=== PATIENT | female | born 1990 | race Caucasian/White ===

== ENCOUNTER 2017-11-20 07:42 | Observation (INO) | payer MEDICAID ==
[2017-11-20] VITALS (15 sets, daily range): BP systolic 89–107; BP diastolic 49–62
[~2017-11-20 07:42] MED LIST: ACE3 PO; ALBU8.5H IH; AMOX-362 PO; AMOX500T10 PO; AMOX875T60 PO; ARIP5TAB28 PO; BENZ57AE; CEPH500C24 PO; CIPR-344 PO; DOXY-179 PO; FLUO-202 PO; HYDR-4309 PO; IBU800 PO; IBUP800T37 PO; KET10 PO; LANO56CR3 TP; LEVO-85 PO; LOR5 PO; LOR5/325 PO; METR-1 PO; METR-160 PO; MULT-892 PO; NORG1TAB2 PO; ONDA4TAB PO; OXYC-865 PO; PENI-24 PO; PER PO; PNV1TABL PO; PREN-67 PO; PROM-110 PO; TRAM-627 PO
--- NOTE | 2017-11-20 07:48 | ER Report ---
History and Physical Time Seen By MD: 07:48 HPI/ROS Chief Complaint: Diffuse abdominal pain, left back/flank pain HPI: Patient is a 27 yo F here with complaints of left back/flank pain since Thursday which is now spread into the abdomen which is now diffusely tender since last night. Patient reports subjective fevers, chills, SOB secondary to abdominal pain, nausea without emesis. She is passing bowel movements and urine without blood. She has had a tubal with a prior but denies other abdominal surgeries. Allergies: Coded Allergies: peanut (Verified Allergy, Unknown, 11/20/17) Uncoded Allergies: ARTIFICIALCHEERIES (Allergy, Mild, HIVES, 09/20/15) coconut (Allergy, Unknown, 03/09/13) Home Meds Reported Medications Bupropion Hcl (WELLBUTRIN SR) 150 Mg Tablet.er, 150 MG PO QDAY, TAB 11/20/17 Fluoxetine Hcl (PROZAC) 40 Mg Capsule, 40 MG PO QDAY, CAPSULE 11/20/17 Discontinued Scripts Oxycodone Hcl/Acetaminophen (PERCOCET 5-325 MG TABLET) 1 Each Tablet, 1-2 EACH PO Q4H Y for PAIN, #12 TAB Prov:BIBCORTEZ DO 02/06/16 Amoxicillin (AMOXICILLIN) 500 Mg Capsule, 1 CAP PO TID for infection, #30 CAPSULE Prov:BIBCORTEZ DO 02/06/16 Hx Smoking: Yes Smoking Status: Former Smoker Exposure to Second Hand Smoke?: Yes Hx Substance Use Disorder: No Hx Alcohol Use: No Constitutional Vital Sign - Last 24 Hours 11/20/17 11/20/17 11/20/17 11/20/17 07:51 08:00 08:30 08:41 Temp 98.8 Pulse 92 85 83 Resp 18 B/P (MAP) 116/76 108/70 (83) 111/72 (85) Pulse Ox 96 94 88 O2 Delivery Room Air O2 Flow Rate 2.0 11/20/17 11/20/17 11/20/17 11/20/17 09:19 09:30 10:00 10:30 Pulse 72 67 B/P (MAP) 104/64 (77) 115/55 (75) 106/56 (73) 99/50 (66) Pulse Ox 97 98 11/20/17 11:00 Pulse 68 B/P (MAP) 97/59 (72) Pulse Ox 98 Physical Exam General Appearance: The patient is alert, has no immediate need for airway protection and no signs of toxicity. Moderate distress secondary to pain Eyes: Pupils equal and round no pallor or injection. ENT, Mouth: Mucous membranes are moist. Respiratory: There are no retractions, lungs are clear to auscultation. Cardiovascular: Regular rate and rhythm. Gastrointestinal: Abdomen is soft and + diffusely tender , no masses, bowel sounds normal. Neurological: No focal deficits Skin: Warm and dry, no rashes. Musculoskeletal: Neck is supple non tender. Extremities are nontender, nonswollen and have full range of motion. DIFFERENTIAL DIAGNOSIS: After history and physical exam differential diagnosis was considered for abdominal pain including but not limited to appendicitis, cholecystitis, gastritis and urinary tract infection, pyelonephritis, nephrolithiasis, ureterolithiasis Medical Decision Making Data Points Result Diagram: 11/20/17 0815 11/20/17 0815 Laboratory Hematology Test 11/20/17 08:08 11/20/17 08:15 Urine Color Yellow Urine Clarity Slightly-cloudy Urine pH 7.0 pH (4.8-9.5) Urine Specific Beatty 1.017 Urine Protein 30 mg/dL (NEGATIVE) Urine Glucose (UA) Negative mg/dL (NEGATIVE) Urine Ketones Negative mg/dL (NEGATIVE) Urine Blood Negative (NEGATIVE) Urine Nitrite Positive (NEGATIVE) Urine Bilirubin Negative (NEGATIVE) Urine Urobilinogen 4.0 mg/dL (0.2-1.9) Urine Leukocyte Esterase Small (NEGATIVE) Urine RBC 6 /HPF (0-2/HPF) Urine WBC 68 /HPF (0-5/HPF) Urine Squamous Epithelial Cells None /LPF (</=FEW) Urine Transitional Epithelial Cells Few /LPF (NONE-FEW) Urine Bacteria Moderate /HPF (NONE-FEW) Urine Mucus Few /HPF (NONE-FEW) Red Blood Count 4.52 M/uL (4.17-5.56) Mean Corpuscular Volume 85.3 fL (80.0-96.0) Mean Corpuscular Hemoglobin 29.7 pg (26.0-33.0) Mean Corpuscular Hemoglobin Concent 34.8 g/dL (32.0-36.0) Red Cell Distribution Width 13.0 % (11.5-14.5) Mean Platelet Volume 8.3 fL (7.2-11.1) Neutrophils (%) (Auto) 88.1 % (39.4-72.5) Lymphocytes (%) (Auto) 5.0 % (17.6-49.6) Monocytes (%) (Auto) 6.5 % (4.1-12.4) Eosinophils (%) (Auto) 0.1 % (0.4-6.7) Basophils (%) (Auto) 0.3 % (0.3-1.4) Nucleated RBC Relative Count (auto) 0.0 /100WBC Neutrophils # (Auto) 9.7 K/uL (2.0-7.4) Lymphocytes # (Auto) 0.5 K/uL (1.3-3.6) Monocytes # (Auto) 0.7 K/uL (0.3-1.0) Eosinophils # (Auto) 0.0 K/uL (0.0-0.5) Basophils # (Auto) 0.0 K/uL (0.0-0.1) Nucleated RBC Absolute Count (auto) 0.00 K/uL Peripheral Blood Smear No Y/N Sodium Level 139 mmol/L (137-145) Potassium Level 3.7 mmol/L (3.5-5.0) Chloride Level 100 mmol/L (98-107) Carbon Dioxide Level 24 mmol/L (22-31) Blood Urea Nitrogen 9 mg/dl (7-18) Creatinine 0.70 mg/dl (0.52-1.04) Glomerular Filtration Rate Calc > 60.0 Random Glucose 96 mg/dl (75-110) Lactate 1.3 mmol/L (0.7-2.1) Calcium Level 9.0 mg/dl (8.4-10.2) Total Bilirubin 0.7 mg/dl (0.2-1.3) Aspartate Amino Transf (AST/SGOT) 20 U/L (0-35) Alanine Aminotransferase (ALT/SGPT) 27 U/L (0-56) Alkaline Phosphatase 57 U/L (0-126) Total Protein 6.9 g/dl (6.3-8.2) Albumin 4.0 g/dl (3.5-5.0) Lipase 98 U/L (23-300) Human Chorionic Gonadotropin, Qual Negative (NEGATIVE) Chemistry Test 11/20/17 08:08 11/20/17 08:15 Urine Color Yellow Urine Clarity Slightly-cloudy Urine pH 7.0 pH (4.8-9.5) Urine Specific Beatty 1.017 Urine Protein 30 mg/dL (NEGATIVE) Urine Glucose (UA) Negative mg/dL (NEGATIVE) Urine Ketones Negative mg/dL (NEGATIVE) Urine Blood Negative (NEGATIVE) Urine Nitrite Positive (NEGATIVE) Urine Bilirubin Negative (NEGATIVE) Urine Urobilinogen 4.0 mg/dL (0.2-1.9) Urine Leukocyte Esterase Small (NEGATIVE) Urine RBC 6 /HPF (0-2/HPF) Urine WBC 68 /HPF (0-5/HPF) Urine Squamous Epithelial Cells None /LPF (</=FEW) Urine Transitional Epithelial Cells Few /LPF (NONE-FEW) Urine Bacteria Moderate /HPF (NONE-FEW) Urine Mucus Few /HPF (NONE-FEW) White Blood Count 11.0 k/uL (4.5-11.0) Red Blood Count 4.52 M/uL (4.17-5.56) Hemoglobin 13.4 g/dL (12.0-16.0) Hematocrit 38.6 % (34.0-47.0) Mean Corpuscular Volume 85.3 fL (80.0-96.0) Mean Corpuscular Hemoglobin 29.7 pg (26.0-33.0) Mean Corpuscular Hemoglobin Concent 34.8 g/dL (32.0-36.0) Red Cell Distribution Width 13.0 % (11.5-14.5) Platelet Count 191 K/uL (150-450) Mean Platelet Volume 8.3 fL (7.2-11.1) Neutrophils (%) (Auto) 88.1 % (39.4-72.5) Lymphocytes (%) (Auto) 5.0 % (17.6-49.6) Monocytes (%) (Auto) 6.5 % (4.1-12.4) Eosinophils (%) (Auto) 0.1 % (0.4-6.7) Basophils (%) (Auto) 0.3 % (0.3-1.4) Nucleated RBC Relative Count (auto) 0.0 /100WBC Neutrophils # (Auto) 9.7 K/uL (2.0-7.4) Lymphocytes # (Auto) 0.5 K/uL (1.3-3.6) Monocytes # (Auto) 0.7 K/uL (0.3-1.0) Eosinophils # (Auto) 0.0 K/uL (0.0-0.5) Basophils # (Auto) 0.0 K/uL (0.0-0.1) Nucleated RBC Absolute Count (auto) 0.00 K/uL Peripheral Blood Smear No Y/N Glomerular Filtration Rate Calc > 60.0 Lactate 1.3 mmol/L (0.7-2.1) Calcium Level 9.0 mg/dl (8.4-10.2) Total Bilirubin 0.7 mg/dl (0.2-1.3) Aspartate Amino Transf (AST/SGOT) 20 U/L (0-35) Alanine Aminotransferase (ALT/SGPT) 27 U/L (0-56) Alkaline Phosphatase 57 U/L (0-126) Total Protein 6.9 g/dl (6.3-8.2) Albumin 4.0 g/dl (3.5-5.0) Lipase 98 U/L (23-300) Human Chorionic Gonadotropin, Qual Negative (NEGATIVE) Urinalysis Test 11/20/17 08:08 Urine Color Yellow Urine Clarity Slightly-cloudy Urine pH 7.0 pH (4.8-9.5) Urine Specific Beatty 1.017 Urine Protein 30 mg/dL (NEGATIVE) Urine Glucose (UA) Negative mg/dL (NEGATIVE) Urine Ketones Negative mg/dL (NEGATIVE) Urine Blood Negative (NEGATIVE) Urine Nitrite Positive (NEGATIVE) Urine Bilirubin Negative (NEGATIVE) Urine Urobilinogen 4.0 mg/dL (0.2-1.9) Urine Leukocyte Esterase Small (NEGATIVE) Urine RBC 6 /HPF (0-2/HPF) Urine WBC 68 /HPF (0-5/HPF) Urine Squamous Epithelial Cells None /LPF (</=FEW) Urine Transitional Epithelial Cells Few /LPF (NONE-FEW) Urine Bacteria Moderate /HPF (NONE-FEW) Urine Mucus Few /HPF (NONE-FEW) EKG/Imaging Imaging ABDOMEN/PELVIS WITH CONTRAST HISTORY: diffuse abd pain, left flank pain TECHNIQUE: Following administration of IV contrast contiguous axial images acquired through the abdomen/pelvis. Coronal and sagittal reformatting also performed. Dose Lowering Technique One of the following dose optimization techniques was utilized in the performance of this exam: Automated exposure control; adjustment of the mA and/ or kV according to the patient's size; or use of an iterative reconstruction technique. Specific details can be referenced in the facility's radiology CT exam operational policy. CONTRAST: 75 mL Isovue-370 COMPARISON: October 22, 2015 FINDINGS: Visualized lung bases: Minimal dependent changes in the lower lung gramajo Hepatobiliary: Negative. Spleen: Negative. Adrenals: Negative. Pancreas: Negative. Kidneys ureters or bladder: There is a 1 cm round indeterminate hypodensity in the mid right kidney. There is moderate left hydronephrosis and left hydroureter secondary to a 7 x 4 mm calculus in the mid left ureter Genitalia: Tubal ligation clips are noted GI: Negative. Vessels/spaces/nodes: There is a trace amount of free pelvic fluid Bones/soft tissues: There is a disc excavatum deformity the anterior chest wall. Small umbilical hernia containing fat Additional findings: None pertinent. IMPRESSION: Moderate left hydronephrosis and left hydroureter secondary to a 7 x 4 mm calculus in the mid left ureter 1 cm round indeterminate hypodensity in the mid right kidney CHEST PA AND LAT INDICATION: SOB COMPARISON: None available FINDINGS: Heart size within normal limits. There is no focal infiltrate or lobar consolidation. There is no pneumothorax or pleural effusion. IMPRESSION: 1. No acute cardiopulmonary process. ED Course/Re-evaluation ED Course Patient is a 27-year-old female here with complaints of left flank pain, diffuse abdominal pain as well as subjective fevers at home. In this clinical setting, patient presentation is concerning for pyelonephritis versus cystitis. CT imaging showed a 7 mm midureteral stone on the left with moderate hydronephrosis. Patient also complained of SOB so a CXR was completed and was unremarkable. Urinalysis was positive for urinary tract infection, culture was ordered and pending. She was given Dilaudid, Zofran, fluids for symptomatic relief as well as a dose of ceftriaxone for antimicrobial coverage. I discussed the patient with Urology manager professional development Dr. Lozoya who accepted the patient. Patient remained stable throughout ED course. Re-evaluation 11/20/2017 11:46:47 am I reevaluated the patient and she follows that her pain was returning so subsequent dose of Dilaudid was ordered. Decision to Disposition Date: Nov 20, 2017 Decision to Disposition Time: 11:40 Depart Departure Latest Vital Signs Vital Signs Date Time Temp Pulse Resp B/P (MAP) Pulse Ox O2 Delivery O2 Flow Rate FiO2 11/20/17 11:00 68 97/59 (72) 98 11/20/17 08:41 2.0 11/20/17 07:51 98.8 18 Room Air Impression: Primary Impression: Urinary tract infection Additional Impressions: Abdominal pain Nausea Hydronephrosis concurrent with and due to calculi of kidney and ureter Condition: Improved Disposition: ADMIT FROM ER TO OR Referrals: LEONARDO PEÑA MD (PCP) Problem Qualifiers NILA PENA DO Nov 20, 2017 07:48
[2017-11-20] MEDS ORDERED: NS(*) 0.9% 1000 ML BAG 1,000 ML IV ONE (07:53)
[2017-11-20] MEDS ORDERED: BUPR-126 PO (07:55)
[2017-11-20] MEDS ORDERED: HYDROmorphone* 1 MG/ML 1 MG/ML ML IVP ONE ×2 (07:55→11:35)
[2017-11-20] MEDS ORDERED: FLUO40CA76 PO (07:55)
[2017-11-20] MEDS ORDERED: ONDANSETRON 4 MG/2 ML VIAL IVP ONE (07:55)
[2017-11-20 08:29] LABS: PLATELET COUNT, AUTOMATED 191 K/uL (150-450)
[2017-11-20] MEDS ORDERED: IOPAMIDOL 76% 75 ML INFUS BTL 75 ML ONE (08:45)
[2017-11-20] MEDS ORDERED: cefTRIAXone 1 GM VIAL IVP ONE (09:00)
--- NOTE | 2017-11-20 09:24 | RADIOLOGY IMAGING REPORT ---
FACILITY: [facility] PATIENT NAME: Kaye Harry : 1990 MR: [id number] V: [id number] EXAM DATE: ORDERING PHYSICIAN: NILA PENA TECHNOLOGIST: Location: [facility] Patient: Kaye Harry : 1990 Visit/Account:[id number] Date of Sevice: 11/20/2017 CHEST PA AND LAT INDICATION: SOB COMPARISON: None available FINDINGS: Heart size within normal limits. There is no focal infiltrate or lobar consolidation. There is no pneumothorax or pleural effusion. IMPRESSION: 1. No acute cardiopulmonary process. Report Dictated By: Vish Brewer at 11/20/2017 9:20 AM Report E-Signed By: Vish Brewer at 11/20/2017 9:20 AM WSN:[email or web address]
--- NOTE | 2017-11-20 09:35 | RADIOLOGY IMAGING REPORT ---
FACILITY: [facility] - [place] PATIENT NAME: Kaye Harry : 1990 MR: [id number] V: [id number] EXAM DATE: ORDERING PHYSICIAN: NILA PENA TECHNOLOGIST: Location: [facility] [place] Patient: Kyae Harry : 1990 Visit/Account:[id number] Date of Sevice: 11/20/2017 ABDOMEN/PELVIS WITH CONTRAST HISTORY: diffuse abd pain, left flank pain TECHNIQUE: Following administration of IV contrast contiguous axial images acquired through the abdom en/pelvis. Coronal and sagittal reformatting also performed. Dose Lowering Technique One of the following dose optimization techniques was utilized in the performance of this exam: Autom ated exposure control; adjustment of the mA and/or kV according to the patient's size; or use of an i terative reconstruction technique. Specific details can be referenced in the facility's radiology C T exam operational policy. CONTRAST: 75 mL Isovue-370 COMPARISON: October 22, 2015 FINDINGS: Visualized lung bases: Minimal dependent changes in the lower lung gramajo Hepatobiliary: Negative. Spleen: Negative. Adrenals: Negative. Pancreas: Negative. Kidneys ureters or bladder: There is a 1 cm round indeterminate hypodensity in the mid right kidney. There is moderate left hydronephrosis and left hydroureter secondary to a 7 x 4 mm calculus in the mi d left ureter Genitalia: Tubal ligation clips are noted GI: Negative. Vessels/spaces/nodes: There is a trace amount of free pelvic fluid Bones/soft tissues: There is a disc excavatum deformity the anterior chest wall. Small umbilical he rnia containing fat Additional findings: None pertinent. IMPRESSION: Moderate left hydronephrosis and left hydroureter secondary to a 7 x 4 mm calculus in the mid left ur eter 1 cm round indeterminate hypodensity in the mid right kidney Report Dictated By: Purvi Knutson MD at 11/20/2017 9:22 AM Report E-Signed By: Purvi Knutson MD at 11/20/2017 9:31 AM WSN:[email or web address]
[2017-11-20] MEDS ORDERED: FAMOTIDINE 20 MG/50 ML PREMIX IVPB ONE (12:00)
[2017-11-20] MEDS ORDERED: MIDAZOLAM 2 MG/2 ML VIAL IVP PRN (12:00)
[2017-11-20] MEDS ORDERED: NORMOSOL R SOLN(*) 1000 ML BAG 1,000 ML IV PRN (12:00)
[2017-11-20] MEDS ORDERED: PROPOFOL EMUL(*) 10MG/ML 20 ML 20 ML ONE (12:05)
[2017-11-20] MEDS ORDERED: LIDOCAINE MPF 1% 5 ML VIAL ONE (12:05)
[2017-11-20] MEDS ORDERED: fentaNYL CITR 100 MCG/2 ML AMP ONE (12:05)
[2017-11-20] MEDS ORDERED: ONDANSETRON 4 MG/2 ML VIAL ONE (12:05)
[2017-11-20] MEDS ORDERED: DEXAMETHASONE SOD 4 MG/ML VIAL ONE (12:06)
[2017-11-20] MEDS ORDERED: LIDOCAINE 2% JELLY 5 ML TUBE ONE (12:07)
[2017-11-20] MEDS ORDERED: HALOPERIDOL LACT 5 MG/ML VIAL IM ONE (12:15)
[2017-11-20] MEDS ORDERED: GENTAMICIN(*) 80 MG/2 ML VIAL 160 MG in NS(*) 0.9% 100 ML BAG 100 ML IVPB ONE (12:25)
[2017-11-20] MEDS ORDERED: fentaNYL CITR 100 MCG/2 ML AMP IVP PRN (12:55)
[2017-11-20] MEDS ORDERED: LIDOCAINE 2% JELLY 30 ML TUBE ONE (13:40)
[2017-11-20] MEDS ORDERED: KETOROLAC 30 MG/ML VIAL ONE (14:26)
[2017-11-20] MEDS ORDERED: FLUSH 10 ML SYR IVP PRN (14:40)
[2017-11-20] MEDS ORDERED: NALOXONE HCL 0.4 MG/ML VIAL IVP PRN (14:40)
[2017-11-20] MEDS ORDERED: HYDROmorphone PCA 6 MG/30 ML IV PRN (14:40)
[2017-11-20] MEDS ORDERED: ZOLPIDEM TARTRATE 5 MG TAB PO PRN (14:40)
[2017-11-20] MEDS ORDERED: ONDANSETRON 4 MG/2 ML VIAL IVP PRN (14:40)
[2017-11-20] MEDS: LR(*) 1000 ML BAG 1,000 ML IV PRN ×2 (15:50→23:50)
--- NOTE | 2017-11-20 16:01 | RADIOLOGY IMAGING REPORT ---
FACILITY: [facility] PATIENT NAME: Kaye Harry : 1990 MR: [id number] V: [id number] EXAM DATE: ORDERING PHYSICIAN: BERNARD MCCLELLAN TECHNOLOGIST: Location: [facility] - [place] Patient: Kaye Harry : 1990 Visit/Account:[id number] Date of Sevice: 11/20/2017 Exam type: RETROGRADE PYELOGRAM History: Image. Comparison: CT abdomen pelvis performed today. Findings: Three intraoperative CR spot views the abdomen pelvis were submitted. The total prostate be time was 0.1 minute. The fluoroscopy dose was 0.76 mGray . On image one contrast distends the urinary bladder. There Is a small amount contrast identified i n the renal collecting systems bilaterally. Images two and three demonstrate placement of a left ure teral stent IMPRESSION: 1. As above Report Dictated By: Purvi Knutson MD at 11/20/2017 3:55 PM Report E-Signed By: Purvi Knutson MD at 11/20/2017 3:57 PM WSN:[email or web address]
--- NOTE | 2017-11-20 16:05 | OPERATIVE REPORT 1 ---
EVENT DATE: November 20, 2017 SURGEON: Reggie Lozoya MD ANESTHESIOLOGIST: Devonte Barrera MD ANESTHESIA: General anesthetic. PREOPERATIVE DIAGNOSES 1. Left ureterolithiasis with associated colic, nausea, and vomiting. 2. Chills and fever, etiology ?, probable urinary tract infection and/or pyelonephritis, urosepsis. POSTOPERATIVE DIAGNOSES 1. Left ureterolithiasis with associated colic, nausea, and vomiting. 2. Chills and fever, etiology ?, probable urinary tract infection and/or pyelonephritis urosepsis. PROCEDURES PERFORMED 1. Cystourethroscopy. 2. Left ureteral stent placement. 3. Collection of urine from the bladder for urinalysis, culture and sensitivity. 4. Collection of urine from the left kidney for urinalysis, culture and sensitivity. DESCRIPTION OF PROCEDURE Under general anesthetic, the patient was prepped and draped in the extended lithotomy position. The 21 panendoscope admitted through the urethra to the bladder. The urine was cloudy and took several irrigations to clear. At conclusion of the irrigation, there was noted to be evidence of acute cystitis with inflammatory lesion and some early ulcerations on a few lesions. No other demonstrable lesions. Trigone and ureteral orifices were otherwise normal. The access catheter was passed up the left collecting system into the kidney without any difficulty. The stone was probably manipulated into the left renal pelvis. Urine was collected for urinalysis, culture, and sensitivity from the left kidney. The urine from the left kidney was cloudy as well. The 6-Yakut x 28 cm PercuFlex passed up the right collecting system into the right kidney. X-ray confirmed a full curl in the kidney as well as the bladder. The bladder was drained. The patient tolerated the procedure satisfactorily and returned to the recovery room in satisfactory condition. This is a 27-year-old white female complaining of acute left ureterorenal colic , nausea, and vomiting this past Thursday. CT IVP with contrast showed a stone in the upper ureter. Patient was discharged home, to be followed up. Patient has had interval chills and fever. Patient has had more pain today, and thus came to the emergency room for further evaluation and therapy. I was contacted and have seen the patient. She is agreeable to further evaluation and treatment. White cell count 11,000 range. Urinalysis showed pyuria, nitrite positive. Bladder as previously alluded to above showed evidence of acute cystitis. CT IVP with contrast was reviewed, and there appears to be a stone in the left mid ureter. She was agreeable to further evaluation and therapy. That has been accomplished. See operative note for details. She has had no antecedent history of ureterolithiasis. Patient was informed of need for admission to observe for possible septic shock , chills, fever, need for blood cultures, etc. Patient was agreeable to admission and followup. Patient may need IV antibiotics for several days if she has left pyelonephritis versus acute cystitis. The patient will be discharged home on appropriate antibiotic therapy. Force fluids, 12 glasses of water per day. Activities are as tolerated. She is to strain all her urine. She will be sent home with strainers. She will plan followup as indicated depending on infection issues and considerations. LOUISE
[2017-11-20] MEDS: DOCUSATE SODIUM 100 MG CAP PO SCH (21:16)
[2017-11-20] MEDS: FAMOTIDINE 20 MG TAB PO SCH (21:16)
[2017-11-20] MEDS: GENTAMICIN/NS 80 MG/100 ML PB 100 ML IVPB SCH (21:17)
[2017-11-20] MEDS: ACETAMIN/CODEINE #3 300-30 MG PO PRN (21:22)
[2017-11-21 02:10] VITALS: BP 107/58
[2017-11-21] MEDS: ACETAMIN/CODEINE #3 300-30 MG PO PRN ×2 (05:00→09:01)
[2017-11-21] MEDS: GENTAMICIN/NS 80 MG/100 ML PB 100 ML IVPB SCH (05:37)
[2017-11-21 08:14] VITALS: BP 103/65
[2017-11-21] MEDS: DOCUSATE SODIUM 100 MG CAP PO SCH (08:15)
[2017-11-21] MEDS: FAMOTIDINE 20 MG TAB PO SCH (08:15)
[2017-11-21] MEDS ORDERED: NS 0.9% 500 ML BAG IV PRN (08:20)
[2017-11-21] MEDS ORDERED: cefTRIAXone(*) 1 GM VIAL 1 GM in NS(*) 0.9% 100 ML ADDVANT BAG 100 ML IVPB SCH (09:00)
[2017-11-21] MEDS ORDERED: CIPR-214 PO (11:47)
[2017-11-21] MEDS ORDERED: FAMO20TA28 PO (11:48)
[2017-11-21] MEDS ORDERED: IBUP600T22 PO (11:49)
[2017-11-21] MEDS ORDERED: PHEN200T32 PO (11:50)
[2017-11-21] MEDS ORDERED: HYDR-389 PO (11:52)
== END 2017-11-21 11:41 | disposition home or self-care (01) ==
LOC: ER 07:43 → OR 11:16 → MED 15:40
DX: N30.00 Acute cystitis without hematuria (principal); N20.2 Calculus of kidney with calculus of ureter; N13.30 Unspecified hydronephrosis
CPT/HCPCS: 36415; 52332; 71046; 74177; 74420; 81001; 83605; 83690; 84703; 85025; 86850; 86900; 86901; 87040; 87077; 87088; 87186; 96361; 96374; 96375; 99284; C1769; C1894; G0378; J0696; J1100; J1170; J1580; J1630; J2001; J2250; J2405; J2704; J3010; J3490; J7030; J7050; J7120; Q9967; 82040; 82247; 82310; 82374; 82435; 82565; 82947; 84075; 84132; 84155; 84295; 84450; 84460; 84520

== ENCOUNTER 2017-11-30 01:17 | Day surgery (SDC) | payer MEDICAID ==
[~2017-11-30] VITALS: Ht 165.1 cm; Wt 46.7 kg
[~2017-11-30 01:17] MED LIST changes: +BUPR-126 PO; +CIPR-214 PO; +FAMO20TA28 PO; +FLUO40CA76 PO; +HYDR-389 PO; +IBUP600T22 PO; +PHEN200T32 PO
[2017-11-30 08:05] VITALS: BP 123/78
[2017-11-30] MEDS ORDERED: fentaNYL CITR 100 MCG/2 ML AMP ONE (08:05)
[2017-11-30] MEDS ORDERED: LIDOCAINE MPF 1% 5 ML VIAL ONE (08:06)
[2017-11-30] MEDS ORDERED: PROPOFOL EMUL(*) 10MG/ML 20 ML 20 ML ONE (08:06)
[2017-11-30] MEDS ORDERED: FAMOTIDINE 20 MG TAB PO ONE (08:30)
[2017-11-30] MEDS ORDERED: NORMOSOL R SOLN(*) 1000 ML BAG 1,000 ML IV PRN (08:55)
[2017-11-30] MEDS ORDERED: LIDOCAINE/SOD BICARB 8.4% SYR ID ONE (08:55)
[2017-11-30] MEDS ORDERED: ceFAZolin(*) 1 GM VIAL 1 GM in NS(*) 0.9% 100 ML ADDVANT BAG 100 ML IVPB ONE (08:55)
[2017-11-30] MEDS ORDERED: MIDAZOLAM 2 MG/2 ML VIAL IVP PRN (08:55)
[2017-11-30] MEDS ORDERED: IOPAMIDOL-200 50 ML VIAL IS ONE (10:48)
--- NOTE | 2017-11-30 10:55 | RADIOLOGY IMAGING REPORT ---
FACILITY: [facility] - [place] PATIENT NAME: Kaye Harry : 1990 MR: [id number] V: [id number] EXAM DATE: ORDERING PHYSICIAN: BERNARD MCCLELLAN TECHNOLOGIST: Location: [facility] - [place] Patient: Kaye Harry : 1990 Visit/Account:[id number] Date of Sevice: 11/30/2017 Exam: KUB SINGLE VIEW ABDOMEN Indication: KIDNEY STONES, RAD Comparison: CT 11/20/2017 Findings: Since prior study, left-sided ureteral stent has been placed. At the expected location of the UVJ, several calcifications are present. There are however multiple pelvic phleboliths present. There is nonobstructive bowel gas pattern. IMPRESSION: 1. Left sided ureteral stent, at the level of the UVJ, small calcification is present however, patie nt has multiple pelvic phleboliths and this may represent overlapping calcifications. Report Dictated By: Vish Brewer at 11/30/2017 10:50 AM Report E-Signed By: Vish Brewer at 11/30/2017 10:52 AM WSN:[email or web address]
[2017-11-30] MEDS ORDERED: KETOROLAC 30 MG/ML VIAL ONE (11:03)
[2017-11-30] MEDS ORDERED: ONDANSETRON 4 MG/2 ML VIAL ONE (11:03)
[2017-11-30] MEDS ORDERED: DEXAMETHASONE SOD 4 MG/ML VIAL ONE (11:03)
[2017-11-30 12:37] VITALS: BP 110/69
[2017-11-30 12:41] VITALS: BP 114/71
[2017-11-30 12:42] VITALS: BP 109/75
--- NOTE | 2017-11-30 15:09 | RADIOLOGY IMAGING REPORT ---
FACILITY: [facility] [place] PATIENT NAME: Kaye Harry : 1990 MR: [id number] V: [id number] EXAM DATE: ORDERING PHYSICIAN: BERNARD MCCLELLAN TECHNOLOGIST: Location: [facility] - [place] Patient: Kaye Harry : 1990 Visit/Account:[id number] Date of Sevice: 11/30/2017 Exam type: C-ARM FLUORO 1 HR History: STONES Comparison: CT and pelvis November 20, 2017. Findings: A single intraoperative CR spot view of abdomen pelvis was submitted. There is a left ureteral stent in place. The previously noted mid left ureteral calculus is not definitively identified. The fluo roscopy time was one second. The fluoroscopy dose was 0.53 mGy IMPRESSION: 1. As above Report Dictated By: Purvi Knutson MD at 11/30/2017 3:04 PM Report E-Signed By: Purvi Knutson MD at 11/30/2017 3:06 PM WSN:[email or web address]
--- NOTE | 2017-12-01 12:09 | OPERATIVE REPORT 1 ---
EVENT DATE: November 30, 2017 SURGEON: Reggie Lozoya MD ANESTHESIOLOGIST: Nikolai Barrett MD ANESTHESIA: General PREOPERATIVE DIAGNOSIS Left ureterolithiasis. POSTOPERATIVE DIAGNOSIS No evidence of left ureterolithiasis. PROCEDURE PERFORMED 1. Cystourethroscopy. 2. Left ureteral stent removal. 3. Left ureteral renoscopy. 4. Collection of bladder urine for culture and sensitivity. DESCRIPTION OF PROCEDURE The patient was prepped and draped in the extended lithotomy position. A 21 panendoscopic was admitted to the urethra and into the bladder. No stones were visible in the bladder. Urine was collected for culture and sensitivity. The left ureteral stent was removed. Again, no stones were visible in the bladder. The semirigid ureterorenoscope passed up the left collecting system without any difficulty and into the left kidney, and no stones were visible on ascending or descending. The ureterorenoscope was removed. The bladder was drained. The patient tolerated the procedure satisfactorily and returned to the recovery room in satisfactory condition. This is a 27-year-old white female complaining of left ureterolithiasis and acute cystitis who I had initially saw a little over a week ago. The patient has recovered satisfactorily following stent placement and collection of urine. Urine from the left kidney showed no growth. Bladder urine showed E. coli sensitive to Cipro. The patient as previously alluded had her stent placed and collection of urine. The patient is see in followup for stent removal, uretero-renoscopy and possible laser lithotripsy and extraction of stones. No stone was found in the left collection system. The patient will be discharged home on her Cipro therapy. She is to percuss her left kidney frequently to facilitate passage of any stone particles. The patient will be discharged home on Pyridium, Motrin, and Percocet therapy. If patient retrieves stones, she is to bring to the office in followup. PLAN Follow up in the office in approximately 2 weeks. LOUISE
== END 2017-11-30 12:37 | disposition home or self-care (01) ==
LOC: OR 01:17
DX: N20.1 Calculus of ureter (principal)
CPT/HCPCS: 52351; 74018; 76000; 81001; 87088; C1769; J0690; J1100; J1885; J2001; J2405; J2704; J3010; J7050; Q9966

== ENCOUNTER → 2018-05-06 | Outpatient (CLI) | payer MEDICAID ==
[~2018-05-06] MED LIST changes: -HYDR-4309 PO; +HYDR-653 PO; -METR-160 PO; +METR500T54 PO
--- NOTE | 2018-05-07 13:04 | RADIOLOGY IMAGING REPORT ---
FAC[place] [facility] [place] PATIENT NAME: OPHELIA COATS : [id number] MR: [id number] V: [id number] EXAM DATE: [id number] ORDERING PHYSICIAN: WILMER BARBER TECHNOLOGIST: Keena Masterson RDMS(ABD,OBGYN,BR),RVT PROCEDURE:US LEFT BREAST COMPLETE COMPARISON:None. INDICATIONS:PALPABLE LUMP IN 12 O'CLOCK POSITION OF THE LT BREAST FINDINGS: The upper portion of the Left breast was imaged from the 9-3 o'clock position revealing no sonographic abnormality. Today's mammogram likewise revealed no abnormality therefore clinical follow-up recommended for patient's palpable findings. DIAGNOSTIC CATEGORY 1--NEGATIVE. RECOMMENDATIONS: CLINICAL EVALUATION. IMPRESSION: BIRADS 1: Negative. No sonographic abnormality is identified to account for patient's palpable findings therefore clinical follow-up recommended. Of note a negative mammogram or Ultrasound report should not preclude biopsy of a clinically suspicious lesion. Dictated by: Purvi Knutson M.D. on 05/06/2018 at 11:11 Transcribed by: ZOEY on 05/06/2018 at 13:51 Approved by: Purvi Knutson M.D. on 05/07/2018 at 13:03 [facility]
--- NOTE | 2018-05-07 13:05 | RADIOLOGY IMAGING REPORT ---
FACILITY: [facility] - [place] PATIENT NAME: OPHELIA COATS : [id number] MR: [id number] V: [id number] EXAM DATE: [id number] ORDERING PHYSICIAN: WILMER BARBER TECHNOLOGIST: Hazel Monge PROCEDURE:BILATERAL DIAGNOSTIC DIGITAL MAMMOGRAM WITH CAD ASSISTED INTERPRETATION & 3D TOMOSYNTHESIS COMPARISON:Today's Left breast Ultrasound. INDICATIONS:PALPABLE LUMP 12 O'CLOCK POSITION LT BREAST, FAMILY HX BREAST CA FINDINGS: Moderately dense fibroglandular tissue is seen throughout the breasts. There is no demonstration of malignant appearing mass, malignant appearing calcifications or other secondary sign of malignancy in either breast. Today's Left breast Ultrasound likewise revealed no sonographic correlate to account for the patient's palpable findings in the 12 o'clock position of the Left breast. DIAGNOSTIC CATEGORY 1--NEGATIVE. RECOMMENDATIONS: CLINICAL EVALUATION. IMPRESSION: BIRADS 1: Negative. No significant abnormality is seen therefore clinical follow-up recommended for patient's palpable findings in the 12 o'clock position of the Left breast. Of note a negative mammogram or Ultrasound report should not preclude biopsy of a clinically suspicious lesion. Dictated by: Purvi Knutson M.D. on 05/06/2018 at 10:57 Transcribed by: ZOEY on 05/06/2018 at 13:45 Approved by: Purvi Knutson M.D. on 05/07/2018 at 13:03 [facility]
== END ==
LOC: MAMO 06:50
PROVIDERS: ATTEND Physician Assistant
DX: N64.4 Mastodynia (principal); N63.20 Unspecified lump in the left breast, unspecified quadrant; Z80.3 Family history of malignant neoplasm of breast
CPT/HCPCS: 77062; 77066

== ENCOUNTER 2018-06-22 09:45 | Emergency (ER) | payer OTHER, MEDICAID ==
[~2018-06-22 09:45] MED LIST changes: +METR500T15 PO; -METR500T54 PO
[2018-06-22] MEDS ORDERED: LURA40TA3 PO (09:54)
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
[2018-06-22 11:00] VITALS: BP 93/73
== END 2018-06-22 12:06 | disposition home or self-care (01) ==
LOC: ER 09:50
DX: S09.90XA Unspecified injury of head, initial encounter (principal); V47.5XXA Car driver injured in collision with fixed or stationary object in traffic accident, initial encounter
CPT/HCPCS: 70450; 99284

== ENCOUNTER 2018-08-28 15:04 | Emergency (ER) | payer MEDICAID, OTHER ==
[~2018-08-28 15:04] MED LIST changes: +LURA40TA3 PO
--- NOTE | 2018-08-28 15:13 | ER Report ---
History and Physical Time Seen By MD: 15:13 HPI/ROS CHIEF COMPLAINT: Sore throat HISTORY OF PRESENT ILLNESS: This is a 28-year-old female presents to emergency department for a sore throat. Patient states that about 2 days ago she developed a sore throat and a semi-productive cough. She's had some aches and chills no nausea vomiting. No diarrhea. Mild congestion no other complaints. Denies chest pain. No rashes. REVIEW OF SYSTEMS: ENT: As above. Respiratory: As above. Cardiovascular: No chest pain, no palpitations. Gastrointestinal: No vomiting, no abdominal pain. Musculoskeletal: No back pain. 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 Reviewed Nurses Notes: Yes Hx Smoking: Yes Smoking Status: Former Smoker Exposure to Second Hand Smoke?: Yes Hx Substance Use Disorder: No Hx Alcohol Use: No Constitutional Vital Sign - Last 24 Hours 08/28/18 15:18 Temp 97.5 Pulse 87 Resp 17 B/P (MAP) 87/52 Pulse Ox 93 O2 Delivery Room Air Physical Exam General Appearance: The patient is alert, has no immediate need for airway protection and no current signs of toxicity. Eyes: Pupils equal and round no injection. ENT: TMs pearly lopez, landmarks noted, no injection or erythema, no serous otitis bilaterally. Mild erythema to the posterior or for her next, no exudates, no tonsils. Respiratory: Chest is non tender, lungs are clear to auscultation. Cardiac: regular rate and rhythm, no murmurs, clicks or rubs. Gastrointestinal: Abdomen is soft and non tender, no masses, bowel sounds normal. Musculoskeletal: Neck: Neck is supple and non tender. Extremities have full range of motion and are non tender. Skin: No rashes or lesions. DIFFERENTIAL DIAGNOSIS: After history and physical exam differential diagnosis was considered for viral syndrome, strep throat, pneumonia, bronchitis. Medical Decision Making Data Points Laboratory Hematology Test 08/28/18 15:09 Group A Streptococcus (PCR) Negative (NEGATIVE) Chemistry Test 08/28/18 15:09 Group A Streptococcus (PCR) Negative (NEGATIVE) ED Course/Re-evaluation ED Course The patient was admitted to room. A history and physical were obtained. D ifferential diagnoses were considered. Negative strep throat, two-view chest x- ray negative for any acute cardiac pulmonary process. Did review the results with the patient, I did tell her this is likely a viral illness past, symptomatically treatment plenty of fluids, take ibuprofen Tylenol as needed. Follow-up with her primary care provider next week for reevaluation if no improv ement return to ER for any other concerns. Patient expressed understanding discharged home. Decision to Disposition Date: Aug 28, 2018 Decision to Disposition Time: 16:36 Depart Departure Latest Vital Signs Vital Signs Date Time Temp Pulse Resp B/P (MAP) Pulse Ox O2 Delivery O2 Flow Rate FiO2 08/28/18 15:18 97.5 87 17 87/52 93 Room Air Impression: Primary Impression: Viral syndrome Condition: Improved Disposition: HOME OR SELF-CARE Referrals: WILMER BARBER (PCP) Patient Instructions: Viral Syndrome (ED) Additional Instructions: Your strep throat test was negative, no concerning findings on the chest x-ray. Use the Magic mouthwash as needed for sore throat. Please, reconsider vaping. Drink plenty of water. Get plenty of rest. Take ibuprofen and/or Tylenol as needed for aches and pains. Return to the ER for any other concerns OLIMPIA CARPENTER [employer]-BC Aug 28, 2018 15:13
[2018-08-28 15:18] VITALS: BP 87/52
--- NOTE | 2018-08-28 16:19 | RADIOLOGY IMAGING REPORT ---
FACILITY: [facility] PATIENT NAME: Kaye Harry : 1990 MR: [id number] V: [id number] EXAM DATE: ORDERING PHYSICIAN: OLIMPIA CARPENTER TECHNOLOGIST: Location: [facility] - [place] Patient: Kaye Harry : 1990 Visit/Account:[id number] Date of Sevice: 08/28/2018 2 VIEWS CHEST INDICATION: cough. COMPARISON: November 20, 2017. FINDINGS: Heart size within normal limits. There is no focal infiltrate or lobar consolidation. There is no pneumothorax or pleural effusion. IMPRESSION: 1. No acute cardiopulmonary process. Report Dictated By: Hernesto Gabriel MD at 08/28/2018 4:14 PM Report E-Signed By: Hernesto Gabriel MD at 08/28/2018 4:14 PM WSN:[id number]
== END 2018-08-28 16:42 | disposition home or self-care (01) ==
LOC: ER 15:09
DX: B34.9 Viral infection, unspecified (principal)
CPT/HCPCS: 71046; 87653; 99283